=== PATIENT | male | born 1975 | race Caucasian/White ===

== ENCOUNTER 2016-08-10 16:12 | Emergency (ER) | payer OTHER ==
[~2016-08-10] VITALS: Ht 182.9 cm; Wt 72.7 kg
[2016-08-10 16:23] VITALS: BP 174/97; PULSE 97; RESP 16; O2SAT 99
== END 2016-08-10 18:27 | disposition left against medical advice (07) ==
LOC: SED 16:12
DX: Z53.21 Procedure and treatment not carried out due to patient leaving prior to being seen by health care provider (principal)